=== PATIENT | female | born 1980 | race Two or more races ===

== ENCOUNTER 2024-04-27 10:00 | Inpatient (IN) | payer OTHER ==
[~2024-04-27] VITALS: Ht 154.9 cm; Wt 3.2 kg
[2024-04-27 12:04] LABS: HEMATOCRIT 34.4 % (36.0-45.00); HEMOGLOBIN 11.2 g/dL (12.0-15.00); MEAN CORPUSCULAR HEMOGLOBIN 28.3 pg (27.00-32.0); MEAN CORPUSCULAR HGB CONC 32.6 g/dl (32.0-36.0); PLATELET COUNT 202 K/uL (150-450); RED BLOOD COUNT 3.95 M/uL (4.00-6.00); RED CELL DISTRIBUTION WIDTH 14.8 % (11.5-14.5)
[2024-04-27 12:22] LABS: URINE APPEARANCE Clear; URINE BILIRRUBIN Negative (NEGATIVE); URINE BLOOD Negative; URINE COLOR Yellow; URINE GLUCOSE Negative (NEGATIVE); URINE KETONE Trace (NEGATIVE); URINE LEUKOCYTE Trace; URINE NITRATE Negative; URINE PROTEIN Negative (NEGATIVE); URINE UROBILINOGEN 0.2 E.U./dl
[2024-04-27 12:26] LABS: URINE BACTERIA 661.4 uL (0.0-1933); URINE EPITHELIAL CELLS 22.8 uL (0.0-38.8); URINE RBC 2.5 uL (0.0-20.8); URINE WBC 15.2 uL (0.0-23.2)
[2024-04-27 12:29] LABS: INR < 0.93; PARTIAL THROMBOPLASTIN TIME 28.8 SECONDS (22.0-34.0)
[2024-04-27 12:31] LABS: PROTHROMBIN TIME 10.2 SECONDS (9.0-11.5)
[2024-04-27 12:48] LABS: ALBUMIN 2.8 gm/dL (3.4-5.0); BILIRUBIN TOTAL 0.75 mg/dL (0.3-1.2); CALCIUM 9.3 mg/dL (8.5-10.1); CREATININE SERUM 0.53 mg/dL (0.55-1.02); GFR 126.51; GLOBULINA 3.9 G/DL (2.4-3.5); POTASSIUM 3.92 mEq/L (3.5-5.1); TOTAL PROTEIN 6.7 gm/dL (6.4-8.2)
[2024-05-02] MEDS ORDERED: SYNTHROID50 MCG PO (06:30)
[2024-05-02] MEDS ORDERED: PRENATAL + DHA1 EAC1 PO (06:31)
[2024-05-02 06:32] VITALS: BP 122/76
[2024-05-02] MEDS ORDERED: ERYTHROMYCIN BASE OPHT 1GM EACH TUBE OP ONE (07:11)
[2024-05-02] MEDS ORDERED: OXYTOCIN 10 UNITS/ML VIAL ONE ×3 (07:11→10:04)
[2024-05-02] MEDS ORDERED: CITRIC ACID/SODIUM CITRATE 30 ML BLIST.PACK PO ONE (07:30)
[2024-05-02] MEDS ORDERED: CEFAZOLIN SODIUM 1,000 MG VIAL ONE (07:31)
[2024-05-02] MEDS ORDERED: SIMETHICONE 125 MG CAPSULE PO SCH (09:13)
[2024-05-02] MEDS ORDERED: MORPHINE SULFATE 4 MG/ML CARTRIDGE IV PRN (09:15)
[2024-05-02] MEDS ORDERED: OXYTOCIN 1,000 ML IV ONE (09:15)
[2024-05-02] MEDS ORDERED: RINGERS SOLUTION,LACTATED 1,000 ML IV SCH (09:15)
[2024-05-02] MEDS ORDERED: MORPHINE SULFATE 4 MG/ML VIAL IV ONE (09:50)
[2024-05-02] MEDS ORDERED: KETOROLAC TROMETHAMINE 30 MG VIAL ONE (10:15)
[2024-05-02] MEDS ORDERED: KETOROLAC TROMETHAMINE 30 MG VIAL IV SCH (12:00)
[2024-05-02] MEDS ORDERED: ACETAMINOPHEN 500 MG GEL..CAP PO SCH (12:00)
[2024-05-02] MEDS ORDERED: ONDANSETRON HCL 2 MG/ML VIAL IV SCH (12:00)
[2024-05-02 12:17] VITALS: BP 130/74
[2024-05-02] MEDS ORDERED: GABAPENTIN 300 MG CAPSULE PO SCH (17:00)
[2024-05-02 18:15] VITALS: BP 113/73
[2024-05-03 02:33] VITALS: BP 111/68
[2024-05-03 06:33] LABS: HEMATOCRIT 26.3 % (36.0-45.00); MEAN CELL VOLUME 85.8 fL (80.00-100.00); MEAN CORPUSCULAR HGB CONC 33.4 g/dl (32.0-36.0); PLATELET COUNT 157 K/uL (150-450); RED BLOOD COUNT 3.06 M/uL (4.00-6.00); RED CELL DISTRIBUTION WIDTH 14.8 % (11.5-14.5)
[2024-05-03 06:36] LABS: HEMOGLOBIN 8.8 g/dL (12.0-15.00); MEAN CORPUSCULAR HEMOGLOBIN 28.7 pg (27.00-32.0)
[2024-05-03] MEDS ORDERED: KETOROLAC TROMETHAMINE 10 MG TABLET PO SCH (08:00)
[2024-05-03 09:00] VITALS: BP 116/73
[2024-05-03] MEDS ORDERED: DOCUSATE SODIUM 100MG CAP PO SCH (09:00)
[2024-05-03] MEDS ORDERED: IRON FUM,PS/FOLIC/BCOMP,C NO.9 1 CAP CAPSULE PO SCH (09:00)
[2024-05-03 16:00] VITALS: BP 105/69
[2024-05-04] VITALS: BP 114/71
[2024-05-04 08:53] VITALS: BP 118/75
[2024-05-04 13:04] VITALS: BP 116/72
== END 2024-05-04 14:46 | disposition home or self-care (01) | DRG 788 ==
LOC: O/R 05-02 06:08 → OB/GYN 05-02 09:00
PROVIDERS: ADMIT Obstetrics & Gynecology; ATTEND Obstetrics & Gynecology
PROC: 4A1HXCZ Monitoring of Products of Conception, Cardiac Rate, External Approach (ICD-10-PCS; 2024-05-02)
PROC: 10D00Z1 Extraction of Products of Conception, Low, Open Approach (ICD-10-PCS; principal; 2024-05-02 09:00)
DX: O82 Encounter for cesarean delivery without indication (principal); Z3A.39 39 weeks gestation of pregnancy; Z37.0 Single live birth; Z20.822 Contact with and (suspected) exposure to COVID-19

== ENCOUNTER → 2025-05-05 | Emergency (ER) | payer OTHER ==
[~2025-05-05] VITALS: Ht 154.9 cm; Wt 53.5 kg
[~2025-05-05] MED LIST: PRENATAL + DHA1 EAC1 PO; SYNTHROID50 MCG PO
== END | disposition left against medical advice (07) ==
LOC: ER 18:29
DX: Z53.21 Procedure and treatment not carried out due to patient leaving prior to being seen by health care provider (principal)